=== PATIENT | male | born 1965 | race African-American/Black ===

== ENCOUNTER 2016-09-25 13:58 | Emergency (ER) | payer OTHER ==
[~2016-09-25] VITALS: Ht 180.3 cm; Wt 117.0 kg
[2016-09-25 14:01] VITALS: TEMP 36.7; Ht 180.3 cm; Wt 117.0 kg
[2016-09-25] MEDS ORDERED: ONDANSETRON INJ 2 MG/ML 2 ML VIAL IV STA (14:28)
[2016-09-25] MEDS ORDERED: SODIUM CHLORIDE 0.9% 1000ML 1,000 ML IV STA (14:28)
[2016-09-25] MEDS ORDERED: MoRPHine SULFATE 10 MG/ML CARP/VIAL IV PRN (14:30)
[2016-09-25] MEDS ORDERED: ATOR-24 PO (14:33)
[2016-09-25] MEDS ORDERED: NORT25CA PO (14:33)
[2016-09-25] MEDS ORDERED: METR-163 PO (14:33)
[2016-09-25] MEDS ORDERED: DOCU240C12 PO (14:33)
[2016-09-25] MEDS ORDERED: LISI-461 PO (14:33)
[2016-09-25] MEDS ORDERED: ZNTT/150 PO (14:33)
[2016-09-25] MEDS ORDERED: METF-384 PO (14:33)
[2016-09-25] MEDS ORDERED: ASPI81TA28 PO (14:33)
[2016-09-25] MEDS ORDERED: MOML PO (14:33)
[2016-09-25] MEDS ORDERED: GLIM4TAB PO (14:33)
[2016-09-25] MEDS ORDERED: ASPI-391 PO (14:33)
[2016-09-25] MEDS ORDERED: OPTIRAY 320 IV PRN (14:45)
[2016-09-25 14:48] LABS: BASO % 0.7 %; BASO ABS # 0.04 K/uL (0-0.2); COMPLETE YES; EOS % 3.1 %; HEMATOCRIT 41.3 % (42-52); IG% 0.3 %; LYMPH % 37.4 %; LYMPH ABS # 2.17 K/uL (1.2-3.4); MEAN CELL VOLUME 81.9 fL (80-100); MEAN CORPUSCULAR HEMOGLOBIN 27.4 pg (25-34); MEAN CORPUSCULAR HGB CONC 33.4 g/dl (32-36); MEAN PLATELET VOLUME 11.4 fL (7.4-10.4); MONO % 5.9 %; NEUT % 52.6 %; PLATELET COUNT 246 K/uL (130-400); RED BLOOD COUNT 5.04 M/uL (4.7-6.1)
[2016-09-25 14:54] LABS: PARTIAL THROMBOPLASTIN RATIO 0.9; PROTHROMBIN TIME (PATIENT) 10.2 SECONDS (9.0-12.0)
[2016-09-25 15:05] LABS: ALT/SGPT 80 U/L (12-78); AST/SGOT 34 U/L (15-37); BLOOD UREA NITROGEN 14 mg/dl (7-18); BUN/CREATININE RATIO 11.4 (10-20); CALCIUM 8.9 mg/dl (8.5-10.1); CARBON DIOXIDE 28 mmol/L (21-32); CHLORIDE 103 mmol/L (98-107); GLUCOSE 307 mg/dl (70-99); POTASSIUM 4.2 mmol/L (3.5-5.1); SODIUM 137 mmol/L (136-145)
[2016-09-25 15:15] LABS: ALKALINE PHOSPHATASE 143 U/L (45-117); BETA-HYDROXYBUTYRATE 1.25 mg/dL (0.2-2.81)
[2016-09-25 15:55] LABS: URINE APPEARANCE CLEAR (CLEAR); URINE BILIRUBIN NEG (NEG); URINE COLOR YELLOW; URINE NITRITE NEG (NEG); URINE SPECIFIC GRAVITY 1.031 (1.000-1.030); UROBILINOGEN NEG (NEG)
[2016-09-25 15:56] LABS: MANUAL MICROSCOPIC REQUIRED? NO; REVIEW REQ? NO
--- NOTE | 2016-09-25 17:14 | DIAGNOSTIC IMAGING REPORT ---
CT ABD/PELVIS IV AND ORAL CONT CLINICAL HISTORY: Left-sided abdominal pain. Blood in stool. Nausea. COMPARISON STUDY: None. TECHNIQUE: Following the IV administration of 119 mL of Optiray-320, CT scan of the abdomen and pelvis was performed from the lung bases to the proximal femurs. Images are reviewed in the axial, sagittal, and coronal planes. IV contrast was administered without complication. CT DOSE: 1089.31 mGy.cm FINDINGS: Lower chest: There are minimal dependent atelectatic changes. Liver: There is hepatic steatosis. The liver is mildly enlarged. No focal hepatic masses are visualized. Portal vein appears patent. Gallbladder: Unremarkable. Spleen: Normal in size and attenuation. Pancreas: Unremarkable. Adrenal glands: Unremarkable. Kidneys: There is symmetric renal cortical enhancement. The kidneys are normal in size without hydronephrosis. Bowel: There are no transition zones indicate bowel obstruction. There are few colonic diverticula present. There is no evidence of acute diverticulitis. There is mild fecal retention. The appendix appears normal. Peritoneum: There is no intraperitoneal free air or abdominal ascites. Vasculature: The abdominal aorta is normal in course and caliber. Adenopathy: None. Pelvic viscera: The bladder, and pelvic viscera are unremarkable. Skeletal structures: No destructive osseous lesions are seen. IMPRESSION: 1. No evidence of bowel obstruction. No evidence of free air 2. Normal appendix 3. No evidence of acute diverticulitis 4. Hepatic steatosis. Mild hepatomegaly. Electronically signed by: Angelo Green M.D. 09/25/2016 5:13 PM Dictated Date/Time: 09/25/2016 5:10 PM
[2016-09-25 17:16] VITALS: BP 146/65; PULSE 72; O2SAT 98
--- NOTE | 2016-09-25 20:42 | EMERGENCY ROOM VISIT NOTE ---
ED Visit Note First contact with patient: 14:03 Chief Complaint: Abdominal pain. History of Present Illness: Mr. Payne is a 51 year-old black male who ambulates into the ED accompanied by 2 retirement guards complaining of left lower quadrant abdominal pain. Historically patient reports gastric reflux but no abdominal surgery. Patient reports a acute onset of left lower quadrant abdominal pain that started approximately 4 days ago. Since that time the pain has been constant but has waxed and waned in intensity. The pain is currently described as sharp just left lateral to the umbilicus in the mid quadrant. The pain is nonradiating. The pain worsens with palpation and movements at the waist and he has not identified any alleviating factors related to the pain. He reports he has not been given any medications for pain at the retirement but reported that he was started on ciprofloxacin and has taken 2 doses without relief of his discomfort. Associated with his pain he reports he has been nauseated but has not vomited, intermittently he has been feeling hot and has had episodes of diaphoresis and for the last 2 days he has noted bright red blood by rectum. Patient denies skin eruptions, skin color changes, upper respiratory tract symptoms, shortness of breath, chest pain, diarrhea, constipation, black/tarry stools, urinary symptoms, hematuria, back/flank pain. Review of Systems: As noted above in history of present illness. All body systems were reviewed and found to be negative as noted above. Past Medical History: As noted above, diabetes, hypertension, dyslipidemia. Current Medications: Medications Dose Route/Sig Max Daily Dose Days Date Category Dose Instructions Zantac (Ranitidine HCl) 150 Mg Tab 150 Mg PO BID 09/25/16 Reported Flagyl (Metronidazole) 500 Mg Tab 500 Mg PO QID 09/25/16 Reported START DATE 09/24/16, END DATE 10/03/16 Excedrin Extra Strength (Oqhtvlb-Vhiijscdtvbve-Mpeiwufa) 1 Tab Tab 2 Tabs PO TID PRN 09/25/16 Reported Pamelor (Nortriptyline HCl) 25 Mg Cap 25 Mg PO HS 09/25/16 Reported CRUSH Milk Of Magnesia (Magnesium Hydroxide) 30 Ml Susp 30 Ml PO DAILY PRN 09/25/16 Reported Glucophage (Metformin Hcl) 1,000 Mg Tab 1,000 Mg PO BID 09/25/16 Reported Zestril (Lisinopril) 10 Mg Tab 10 Mg PO DAILY 09/25/16 Reported Amaryl (Glimepiride) 4 Mg Tab 4 Mg PO DAILY 09/25/16 Reported Docusate Calcium 240 Mg Cap 240 Mg PO DAILY 09/25/16 Reported Lipitor (Atorvastatin Calcium) 40 Mg Tab 40 Mg PO HS 09/25/16 Reported Aspirin Ec (Aspirin) 81 Mg Tab 81 Mg PO DAILY 09/25/16 Reported Allergies to Medications: Patient denies. Social History: Patient is currently incarcerated; he admits to tobacco use and denies alcohol use. Physical Examination: Vital Signs: Date Time Temp Pulse Resp B/P (MAP) Pulse Ox O2 Delivery O2 Flow Rate FiO2 09/25/16 17:16 72 18 146/65 98 Room Air 09/25/16 15:11 78 16 156/107 98 Room Air 09/25/16 14:01 36.7 93 20 156/103 97 Room Air GENERAL: 51-year-old male in mild to moderate distress due to pain, nontoxic- appearing, afebrile and hemodynamically stable. NEUROLOGICAL: Awake, alert and oriented to person, place and time. Answering questions appropriately and following commands. Normal gait. Good hand eye coordination. SKIN: Warm, dry and pink. No soft tissue eruptions or trauma noted. HEENT: Atraumatic and normocephalic. PERRLA. Sclera white and conjunctiva pink. Oral cavity moist and pink. Pharynx is nonerythematous or edematous. Speech normal. No lymphadenopathy. Trachea midline. No jugular venous distention. BACK: No tenderness over the bony spine. No CVA tenderness. THORAX: Lungs sounds are clear to auscultation and equal bilaterally with symmetrical chest wall. No wheezing, rales or rhonchi. No crepitus, tenderness , subcutaneous air or deformities noted. HEART: Regular rate and rhythm. No gallops, rubs or murmurs are appreciated. ABDOMEN: Protuberant and taught. Moderate tenderness with guarding in the mid to lower aspects of the left lower quadrant. Decreased bowel sounds in all quadrants. No guarding, rigidity or organomegaly. RECTAL: No external tags or hemorrhoids. Normal rectal tone. No palpable rectal masses. Prostrate was firm, smooth and nontender. Non-melanotic stool on visual examination. Heme positive stool with testing. EXTREMITIES: Moves all extremities well on command and with purpose. All distal neurovascular statuses are intact and equal bilaterally. ED Course: Patient is assessed as noted above. Laboratory Testing: Test 09/25/16 14:35 09/25/16 15:33 Range/Units White Blood Count 5.80 4.8-10.8 K/uL Red Blood Count 5.04 4.7-6.1 M/uL Hemoglobin 13.8 14.0-18.0 g/dL Hematocrit 41.3 42-52 % Mean Corpuscular Volume 81.9 80-100 fL Mean Corpuscular Hemoglobin 27.4 25-34 pg Mean Corpuscular Hemoglobin Concent 33.4 32-36 g/dl Platelet Count 246 130-400 K/uL Mean Platelet Volume 11.4 7.4-10.4 fL Neutrophils (%) (Auto) 52.6 % Lymphocytes (%) (Auto) 37.4 % Monocytes (%) (Auto) 5.9 % Eosinophils (%) (Auto) 3.1 % Basophils (%) (Auto) 0.7 % Neutrophils # (Auto) 3.05 1.4-6.5 K/uL Lymphocytes # (Auto) 2.17 1.2-3.4 K/uL Monocytes # (Auto) 0.34 0.11-0.59 K/uL Eosinophils # (Auto) 0.18 0-0.5 K/uL Basophils # (Auto) 0.04 0-0.2 K/uL RDW Standard Deviation 39.9 36.4-46.3 fL RDW Coefficient of Variation 13.2 11.5-14.5 % Immature Granulocyte % (Auto) 0.3 % Immature Granulocyte # (Auto) 0.02 0.00-0.02 K/uL Prothrombin Time 10.2 9.0-12.0 SECONDS Prothromb Time International Ratio 1.0 0.9-1.1 Activated Partial Thromboplast Time 24.6 21.0-31.0 SECONDS Partial Thromboplastin Ratio 0.9 Sodium Level 137 136-145 mmol/L Potassium Level 4.2 3.5-5.1 mmol/L Chloride Level 103 98-107 mmol/L Carbon Dioxide Level 28 21-32 mmol/L Anion Gap 6.0 3-11 mmol/L Blood Urea Nitrogen 14 7-18 mg/dl Creatinine 1.20 0.60-1.40 mg/dl Est Creatinine Clear Calc Drug Dose 96.9 ml/min Estimated GFR () 81.8 Estimated GFR (Non- 70.6 BUN/Creatinine Ratio 11.4 10-20 Random Glucose 307 70-99 mg/dl Calcium Level 8.9 8.5-10.1 mg/dl Total Bilirubin 0.3 0.2-1 mg/dl Direct Bilirubin < 0.1 0-0.2 mg/dl Aspartate Amino Transf (AST/SGOT) 34 15-37 U/L Alanine Aminotransferase (ALT/SGPT) 80 12-78 U/L Alkaline Phosphatase 143 45-117 U/L Total Protein 7.4 6.4-8.2 gm/dl Albumin 3.9 3.4-5.0 gm/dl Lipase 192 73-393 U/L Beta-Hydroxybutyric Acid 1.25 0.2-2.81 mg/dL Urine Color YELLOW Urine Appearance CLEAR CLEAR Urine pH 7.0 4.5-7.5 Urine Specific [place] 1.031 1.000-1.030 Urine Protein NEG NEG Urine Glucose (UA) 3+ NEG Urine Ketones NEG NEG Urine Occult Blood NEG NEG Urine Nitrite NEG NEG Urine Bilirubin NEG NEG Urine Urobilinogen NEG NEG Urine Leukocyte Esterase NEG NEG Contrast Abdominal/Pelvic CT: Was reviewed by myself and read by the radiologist showing no evidence of bowel obstruction, free air, normal- appearing appendix and no evidence of acute diverticulitis. Hepatic steatosis and mild hepatomegaly was noted. Patient's medications were reviewed by myself. Patient was hydrated with normal saline and he received 4 mg of morphine IV and 4 mg of Zofran IV for his symptoms. Patient was reassessed multiple times during his stay in the emergency department. Patient's case was reviewed with Dr. Mcadams; we agreed on diagnostic approach, treatment, disposition and plan. Clinical Impression: Left lower quadrant abdominal pain. Bright red blood per rectum. Decision-Making: Initially my differential diagnosis I considered diverticulitis , colitis, pancreatitis, GI bleed, and other causes. Disposition: Patient discharged back to retirement accompanied by 2 guards; prior to departure he was reassessed and subjectively reported Plan: It was encouraged that the patient receive acetaminophen every 6 hours as needed for pain. Was encouraged that the patient use [id number] Colace once a day. Was encouraged that the patient have increased fiber in his diet. Was encouraged that the patient follow-up with gastroenterology for recheck and possible colonoscopy. It was encouraged that the patient be returned to the ED for worsening pain, uncontrolled vomiting, worsening bloody stools, black/tarry stools, fevers or any new/concerning symptoms.
== END 2016-09-25 17:52 | disposition home or self-care (01) ==
LOC: C.EDB 14:02
DX: R10.32 Left lower quadrant pain (principal); K62.5 Hemorrhage of anus and rectum; E11.9 Type 2 diabetes mellitus without complications; I10 Essential (primary) hypertension; E78.5 Hyperlipidemia, unspecified; K21.9 Gastro-esophageal reflux disease without esophagitis; Z72.0 Tobacco use; Z79.82 Long term (current) use of aspirin; Z79.84 Long term (current) use of oral hypoglycemic drugs; Z79.899 Other long term (current) drug therapy